=== PATIENT | female | born 1975 ===

== ENCOUNTER 2022-05-19 20:15 | Emergency (ER) | payer MEDICAID, OTHER ==
[~2022-05-19] VITALS: Ht 160 cm; Wt 96.0 kg
[2022-05-19] MEDS ORDERED: OXYCODONE W/ ACETAMINOPHEN 5/325MG TABLET PO ONE (21:15)
[2022-05-19] MEDS ORDERED: ONDANSETRON ODT 4 MG TAB PO ONE (21:15)
[2022-05-20 07:03] VITALS: BP 155/100
== END 2022-05-20 07:13 | disposition home or self-care (01) ==
LOC: ER 20:15 → EDBD 20:15 → ER 05-20 07:13
DX: S39.012A Strain of muscle, fascia and tendon of lower back, initial encounter (principal); I10 Essential (primary) hypertension; Z88.1 Allergy status to other antibiotic agents; V49.9XXA Car occupant (driver) (passenger) injured in unspecified traffic accident, initial encounter; Y93.89 Activity, other specified; Y92.410 Unspecified street and highway as the place of occurrence of the external cause; Y99.8 Other external cause status
CPT/HCPCS: 70450; 71045; 74176; 99284; Q0162